=== PATIENT | female | born 1940 | race Caucasian/White ===

== ENCOUNTER 2020-12-25 11:48 | Outpatient (REF) | payer MEDICARE, SELFPAY ==
--- NOTE | ~2020-12-25 | XR_ITS ---
EXAMINATION: XR CERVICAL SPINE CLINICAL INFORMATION: Cervical spondylosis. COMPARISON: None. TECHNIQUE: AP, lateral, open-mouth, and bilateral oblique views of the cervical spine. FINDINGS: Mild reversal of the normal cervical lordosis, which may be positional or related to muscular spasm. Grade 1 anterolisthesis of C3 on C4 and C4 on C5. No acute fracture. No loss of vertebral body height. Prominent multilevel loss of intervertebral disc height at C3-C7. Prominent multilevel bilateral facet arthropathy with associated bilateral neural foraminal stenosis. Normal atlantoaxial alignment. Unremarkable prevertebral soft tissues. XR/XR cervical spine min 6V IMPRESSION: 1. Mild reversal of the normal cervical lordosis, which may be positional or related to muscular spasm. Grade 1 anterolisthesis of C3 on C4 and C4 on C5. 2. Prominent multilevel degenerative disc disease and bilateral facet arthropathy resulting multilevel bilateral neural foraminal stenosis.
== END 2020-12-25 11:49 | disposition home or self-care (01) ==
LOC: HO.XRAY 11:48
PROVIDERS: PCP Internal Medicine; Visit Provider Psychiatry & Neurology Neurology
DX: M47.812 Spondylosis without myelopathy or radiculopathy, cervical region (principal)
CPT/HCPCS: 72052

== ENCOUNTER 2021-01-04 13:06 | Outpatient (REF) | payer MEDICARE, SELFPAY ==
--- NOTE | ~2021-01-04 | US_ITS ---
EXAMINATION: US EXTRACRANIAL CAROTID DUPLEX, BILATERAL CLINICAL INFORMATION: Dizziness COMPARISON: None TECHNIQUE: Real-time ultrasound and Doppler techniques (integrating B-mode 2-D vascular images, Doppler spectral analysis and color-flow Doppler imaging) were utilized to interrogate the extracranial carotid arteries, the vertebral arteries and proximal subclavian arteries bilaterally. The degree of stenosis is determined by criteria similar to NASCET. FINDINGS: Right Side: 1. There is no significant atherosclerotic plaque seen in the bifurcation/proximal ICA region. 2. The common carotid artery PSV proximally is 81 cm/s and distally 72 cm/s. 3. The proximal internal carotid artery velocities are 70 cm/s systolic and 24 cm/s diastolic. 4. The proximal external carotid artery PSV is 95 cm/s. 5. The vertebral artery shows antegrade flow. 6. The subclavian artery waveforms are normal. Left Side: 1. There is no significant atherosclerotic plaque seen in the bifurcation/proximal ICA region. 2. The common carotid artery PSV proximally is 89 cm/s and distally 82 cm/s. 3. The proximal internal carotid artery velocities are 95 cm/s systolic and 27 cm/s diastolic. 4. The proximal external carotid artery PSV is 83 cm/s. 5. The vertebral artery shows antegrade flow. 6. The subclavian artery waveforms are normal. US/US carotid duplex BI IMPRESSION: 1. RIGHT: Normal right internal carotid artery without atherosclerotic plaque or hemodynamically significant stenosis. 2. LEFT: Normal left internal carotid artery without atherosclerotic plaque or hemodynamically significant stenosis.
== END 2021-01-04 13:07 | disposition home or self-care (01) ==
LOC: HO.US 13:06
PROVIDERS: PCP Internal Medicine; Visit Provider Psychiatry & Neurology Neurology
DX: R42 Dizziness and giddiness (principal)
CPT/HCPCS: 93880